=== PATIENT | male | born 1990 | race American Indian/Alaskan Native ===

== ENCOUNTER 2017-04-26 16:43 | Emergency (ER) | payer OTHER ==
[2017-04-26 18:01] VITALS: BP 175/103
[2017-04-26] MEDS ORDERED: MOTRIN PO ONE (23:57)
== END 2017-04-27 05:38 | disposition left against medical advice (07) ==
LOC: ED 16:43
DX: J11.1 Influenza due to unidentified influenza virus with other respiratory manifestations (principal); Z53.21 Procedure and treatment not carried out due to patient leaving prior to being seen by health care provider
CPT/HCPCS: 87400